=== PATIENT | female | born 1960 | race Hispanic/Latino ===

== ENCOUNTER 2023-04-22 12:24 | Emergency (ER) | payer BC ==
[~2023-04-22] VITALS: Ht 160 cm; Wt 117.9 kg
[~2023-04-22 12:24] MED LIST: AZIT250T9 PO; CETI-89 PO
[2023-04-22] MEDS ORDERED: CLIN-141 PO (14:41)
[2023-04-22] MEDS: CLINDAMYCIN 150 MG CAP PO ONE (14:53)
[2023-04-22] MEDS: ACETAMINOPHEN 500 MG TABLET PO ONE (14:54)
[2023-04-22] MEDS: NEOMY SULF/BACITRA/POLYMYXIN B 1 EACH PACKET TP ONE (15:00)
[2023-04-22] MEDS: TETANUS/DIPHTHERIA TOXOID [ADULT] 0.5 ML VIAL IM ONE (15:00)
[2023-04-22 16:34] VITALS: BP 165/81; PULSE 72; RESP 20; O2SAT 97
== END 2023-04-22 16:34 | disposition home or self-care (01) ==
LOC: EDH 12:24
DX: S81.011A Laceration without foreign body, right knee, initial encounter (principal); S81.031A Puncture wound without foreign body, right knee, initial encounter; Z79.899 Other long term (current) drug therapy; Z88.0 Allergy status to penicillin; W18.39XA Other fall on same level, initial encounter; Y93.89 Activity, other specified; Y92.89 Other specified places as the place of occurrence of the external cause; Y99.8 Other external cause status
CPT/HCPCS: 12001; 73562; 90471; 90714

== ENCOUNTER 2023-05-06 07:33 | Emergency (ER) | payer BC ==
[~2023-05-06] VITALS: Ht 160 cm; Wt 117.9 kg
[~2023-05-06 07:33] MED LIST changes: +CLIN-141 PO; +LISI10TA24 PO; +NITR0.4T50 SL
[2023-05-06] MEDS: DEXAMETHASONE SOD PHOSPHATE 4 MG/ML 1ML VIAL IM ONE (09:41)
[2023-05-06] MEDS: DIPHENHYDRAMINE HCL 25 MG CAPSULE PO ONE (09:41)
[2023-05-06 11:09] VITALS: BP 144/72; PULSE 82; RESP 16; O2SAT 99
== END 2023-05-06 11:12 | disposition home or self-care (01) ==
LOC: EDH 07:33
DX: T78.3XXA Angioneurotic edema, initial encounter (principal)
CPT/HCPCS: 99284; 96372; J1100; Q0163

== ENCOUNTER → 2023-08-05 | Outpatient (CLI) | payer BC | END | disposition home or self-care (01) | LOC: RAH 08:49 | PROVIDERS: ATTEND Physician Assistant | DX: M81.0 Age-related osteoporosis without current pathological fracture (principal) | CPT/HCPCS: 77080 ==